=== PATIENT | male | born 1965 | race Caucasian/White ===

== ENCOUNTER → 2023-02-14 | Outpatient (CLI) | payer BC, SELFPAY ==
[~2023-02-14] MED LIST: LIDOCAINE 1% MDV 20ML VIAL As Ordered ONE
[2023-02-14 14:25] VITALS: TEMP 97.6
[2023-02-14 15:14] VITALS: BP 134/77; O2SAT 98
== END ==
LOC: M IRPRO 14:01
PROVIDERS: ATTEND Nurse Practitioner Adult Health
DX: M86.9 Osteomyelitis, unspecified (principal)
CPT/HCPCS: 36569; C1751